=== PATIENT | female | born 1985 | race Caucasian/White ===

== ENCOUNTER → 2020-02-05 13:25 | Outpatient (BNVA) | payer SELFPAY | PROVIDERS: Family Provider Nurse Practitioner; PCP Nurse Practitioner; Visit Provider Nurse Practitioner | DX: R30.0 Dysuria (principal); N30.90 Cystitis, unspecified without hematuria | CPT/HCPCS: 81000 ==

== ENCOUNTER → 2022-12-09 10:57 | Outpatient (BNVA) | payer SELFPAY | PROVIDERS: Family Provider Nurse Practitioner; PCP Nurse Practitioner; Visit Provider Nurse Practitioner Family | DX: S81.851A Open bite, right lower leg, initial encounter (principal); W55.01XA Bitten by cat, initial encounter; Z79.899 Other long term (current) drug therapy | CPT/HCPCS: 87070; 87075; 87077; 87205 ==

== ENCOUNTER 2023-09-19 08:53 | Emergency (ER) | payer SELFPAY ==
--- NOTE | 2023-09-19 08:56 | ED_ITS ---
HPI - Chest Pain 2 General: Chief Complaint: Chest Pain Stated Complaint: chest pain Time Seen by Provider: 09/19/23 08:55 Source: patient Mode of arrival: ambulatory Limitations: no limitations History of Present Illness: Patient is a 37-year-old female with no known past medical history here via EMS for evaluation of chest pain. Patient states chest pain began this morning during a very heated argument with her significant other. She states pain was located to her substernal and left chest with no radiation. She did experience some associated shortness of breath. EMS states upon arrival patient initially rated her pain at a 7/10 and was able to easily walk to the ambulance. In route she reported pain decreased to a 2/10. Shortly later in route she complained that it felt like it was worsening again thus they administered aspirin and nitro. Upon arrival to the emergency department patient is completely pain- free. She does not complain of shortness of breath or difficulty breathing currently. She arrives with perfect vital signs. Patient states she has had similar discomforts with stress and anxiety before. MD complaint: chest pain Onset (ago): hour(s) Timing of current episode: now resolved Prior episodes: Yes Onset: other (during emotional stress) Pain location: substernal and left chest Pain radiation: none Severity: moderate Relieving factors: rest Associated symptoms: Reports dyspnea (during event; subsided now); Deny abdominal pain, fever(s), nausea, palpitations, syncope or vomiting Treatment prior to arrival: aspirin and nitroglycerin Risk Factors: Coronary artery disease risk factors: none Thoracic aortic dissection risk factors: none Related Data: On Oral Contraceptives: No Review of Systems 2 Const: Denies: fever(s), chills, body aches, fatigue or malaise Eyes: Denies: change in vision or blurry vision ENMT: Denies: throat pain, odynophagia, nasal discharge, nasal congestion or sinus pain Card: Reports: chest pain (resolved now); Denies: palpitations, irregular heart rhythm, edema, swelling of feet/ankles, lightheadedness, syncope, pre-syncope, dyspnea on exertion, orthopnea, leg pain with exertion or acrocyanosis Resp: Reports: dyspnea (during event; subsided now); Denies: productive cough, non-productive cough, wheezing, stridor, pain on inspiration, change in phlegm color, hemoptysis or chest congestion GI: Denies: abdominal pain, nausea, vomiting, heartburn or diarrhea : Denies: flank pain or dysuria Musc: Denies: neck pain, back pain, extremity pain, extremity swelling or joint pain Skin/Breast: Denies: rash Neuro: Denies: headache(s), numbness in extremities, weakness in extremities, sensory changes or dizziness PFSH ED 2 PFSH: Social History Smoking and tobacco/nicotine status: never used tobacco/nicotine Second hand smoke exposure: No Alcohol intake: current Alcohol intake frequency: holidays/special occasions only Substance/Drug Use: current Substance/Drug use frequency: few times a week Marital status: Current occupational status: employed Pets and animals: Yes Pets & animals: cat(s) Current gender identity: Female Special ck needs: No Physical Exam 2 Const: COMMON NORMALS: no acute distress, average body habitus, patient oriented x3, no limitations, healthy appearing, alert and well nourished HENMT: COMMON NORMALS: normocephalic and atraumatic HEAD & SCALP: normal to inspection, normocephalic and atraumatic Neck/C-Spine: COMMON NORMALS: full ROM, no lymphadenopathy, supple, no meningeal signs, no JVD and No carotid bruits Chest: COMMONS NORMALS: normal inspection of the chest and normal palpation of entire chest wall Resp: COMMON NORMALS: normal respiratory effort and clear to auscultation bilaterally AUSCULTATION: clear to auscultation bilaterally Cardio: COMMON NORMALS: no JVD, regular rate and regular rhythm RATE: r egular rate RHYTHM: regular rhythm GI: COMMON NORMALS: Normal to inspection, nondistended, normoactive bowel sounds present, Soft to palpation, non-tender, No hepatosplenomegaly present and no masses PALPATION: Yes Soft to palpation and Yes No hepatosplenomegaly present Back/Pelvis: COMMON NORMALS: thoracic and lumbar spine normal to inspection and no thoracic nor lumbar tenderness Extremity: COMMON NORMALS: normal to inspection, no clubbing, cyanosis or edema, no calf tenderness and no pedal edema GENERAL: Yes normal exam except as noted Neuro: [place] COMA SCALE: document GCS findings [place] coma scale eye opening: Spontaneous [place] coma scale verbal response: Orientated [place] coma scale motor response: Obey commands [place] coma scale total score: 15 COMMON NORMALS: patient oriented x3, moves all extremities, no focal motor deficits and no sensory deficits noted SENSORIUM/ORIENTATION: Yes alert MENINGEAL SIGNS: Yes no meningeal signs Skin: COMMON NORMALS: no rashes or lesions noted GENERAL SKIN EXAM: no rashes or lesions noted Course 2 Vital Signs: Vital signs: Vital Signs Temperature 98.3 F 09/19/23 08:57 Pulse Rate 81 09/19/23 08:57 Blood Pressure 114/71 09/19/23 08:57 Pulse Oximetry 100 09/19/23 08:57 Oxygen Delivery Me thod Room Air 09/19/23 08:57 MDM - Chest Pain Medical Decision Making Patient is a 37-year-old female here for an episode of chest pain that occurred during emotional stress as she was having a heated argument with her . She has had similar pains with stress/anxiety before. Upon arrival to the emergency department she is completely pain-free. Her vital signs are perfect. Blood work including troponins are unremarkable. EKG unremarkable. Her CXR showing no acute findings. She has remained asymptomatic throughout her ED stay. Patient will be allowed discharge with return precautions. Lab Data 09/19/23 09:10 09/19/23 09:10 Radiology Impressions Chest X-Ray 09/19/23 09:00 IMPRESSION: No acute findings. Laboratory Results WBC 6.89 10^3/uL (3.29-11.43) 09/19/23 09:10 RBC 4.48 10^6/uL (3.85-5.65) 09/19/23 09:10 Hgb 13.70 g/dL (11.27-16.99) 09/19/23 09:10 Hct 39.5 % (36-47) 09/19/23 09:10 MCV 88.2 fl (85-98) 09/19/23 09:10 MCH 30.6 pg (27-33) 09/19/23 09:10 MCHC 34.7 g/dL (30-55) 09/19/23 09:10 RDW 11.7 % (12.1-15.1) L 09/19/23 09:10 Plt Count 285 10^3/cmm (157-399) 09/19/23 09:10 MPV 9.2 fL (7.4-10.4) 09/19/23 09:10 Neut % (Auto) 70.6 % 09/19/23 09:10 Lymph % (Auto) 22.2 % 09/19/23 09:10 [place] % (Auto) 5.2 % 09/19/23 09:10 Eos % (Auto) 1.2 % 09/19/23 09:10 Baso % (Auto) 0.7 % 09/19/23 09:10 Neut # (Auto) 4.86 10^3/uL (1.8-7.7) 09/19/23 09:10 Lymph # (Auto) 1.5 10^3/uL (0.8-4.8) 09/19/23 09:10 [place] # (Auto) 0.4 10^3/uL (0.2-0.9) 09/19/23 09:10 Eos # (Auto) 0.1 10^3/uL (0.0-0.8) 09/19/23 09:10 Baso # (Auto) 0.1 10^3/uL (0.0-0.1) 09/19/23 09:10 Nucleated RBC % (auto) 0 % 09/19/23 09:10 Nucleated RBCs # 0.0 /100WBC 09/19/23 09:10 Sodium 137 mmol/L (136-145) 09/19/23 09:10 Potassium 3.7 mmol/L (3.5-5.1) 09/19/23 09:10 Chloride 104 mmol/L (98-107) 09/19/23 09:10 Carbon Dioxide 21 mmol/L (22-29) L 09/19/23 09:10 Anion Gap 15.7 (5-19) 09/19/23 09:10 BUN 14 mg/dL (6-20) 09/19/23 09:10 Creatinine 0.8 mg/dL (0.5-0.9) 09/19/23 09:10 GFR Calculation 79.9 mL/min (90-130) L 09/19/23 09:10 Glucose 125 mg/dL (65-115) H 09/19/23 09:10 Calculated Osmolality 286 mOsm/kg (285-295) 09/19/23 09:10 Calcium 9.7 mg/dL (8.5-10.5) 09/19/23 09:10 Total Bilirubin 0.8 mg/dL (0.15-1.2) 09/19/23 09:10 AST 24 U/L (0-32) 09/19/23 09:10 ALT 23 U/L (0-33) 09/19/23 09:10 Alkaline Phosphatase 55 U/L (35-105) 09/19/23 09:10 Troponin T Baseline < 6 ng/L (0-10) 09/19/23 09:10 Total Protein 7.1 g/dL (6.6-8.7) 09/19/23 09:10 Albumin 4.4 g/dL (3.5-5.2) 09/19/23 09:10 Globulin 2.7 g/dL (1.3-4.6) 09/19/23 09:10 HCG, Qual Negative (Negative) 09/19/23 09:10 All radiology interpretation(s) finalized by discharge Discharge Plan Discharge Patient Disposition: Home Clinical Impression: Non-cardiac chest pain Condition: Stable Prescriptions: No Action albuterol sulfate 90 mcg/actuation HFA aerosol inhaler 2 puff INHALATION Q6H PRN mupirocin 2 % ointment 1 applic topical TID Qty: 22 0RF amoxicillin-pot clavulanate 875-125 mg tablet 1 tab PO BID 10 Days Qty: 20 0RF Discharge Orders: Discharge ED (Routine); Ordered 09/19/23 Ordered By: Cassidy John Referrals: Misael Yancey, ROMMEL-C [Primary Care Provider] - Patient Instructions: Noncardiac Chest Pain (ED) Coding Level of Care Code ED Pharmacy Informatics Specialist for Javon Melara
[2023-09-19 08:57] VITALS: BP 114/71; PULSE 81; TEMP 36.8; O2SAT 100; BMI 23.1
--- NOTE | 2023-09-19 09:00 | XRR_ITS ---
PROCEDURE INFORMATION: Exam: XR Chest Exam date and time: 09/19/2023 9:07 AM Age: 37 years old Clinical indication: Pain; Angina pectoris; Additional info: Chest pain TECHNIQUE: Imaging protocol: Radiologic exam of the chest. Views: 1 view. COMPARISON: No relevant prior studies available. FINDINGS: Lungs: Unremarkable. No consolidation. Pleural spaces: Unremarkable. No pleural effusion. No pneumothorax. Heart/Mediastinum: Unremarkable. No cardiomegaly. Bones/joints: Mild biphasic spinal curvature. XR/XR chest 1V portable [id number] IMPRESSION: No acute findings.
--- NOTE | 2023-09-19 09:00 | ECG_ITS ---
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 Measurements Intervals [place] Rate: 73 P: 81 LA: 156 QRS: 79 QRSD: 78 T: 77 QT: 349 QTc: 387 Interpretive Statements SINUS RHYTHM POSSIBLE RIGHT VENTRICULAR CONDUCTION DELAY [RSR (QR) IN V1/V2] MODERATE ST DEPRESSION [0.05+ mV ST DEPRESSION] No previous ECG available for comparison Electronically Signed On 09-19-2023 10:49:37 EVENT SERVICES MANAGER by Mason Reddy M.D. [id number]
[2023-09-19 09:17] LABS: Basophils # 0.1 10^3/uL (0.0-0.1); Basophils % 0.7 %; Eosinophils # 0.1 10^3/uL (0.0-0.8); Eosinophils % 1.2 %; Hematocrit 39.5 % (36-47); Lymphocytes # 1.5 10^3/uL (0.8-4.8); Lymphocytes % 22.2 %; Mean Corpuscular HGB Conc 34.7 g/dL (30-55); Mean Corpuscular Hemoglobin 30.6 pg (27-33); Mean Corpuscular Volume 88.2 fl (85-98); Mean Platelet Volume 9.2 fL (7.4-10.4); Monocytes # 0.4 10^3/uL (0.2-0.9); Monocytes % 5.2 %; Neutrophils # 4.86 10^3/uL (1.8-7.7); Neutrophils % 70.6 %; Nucleated Red Blood Cells % 0 %; Platelet Count 285 10^3/cmm (157-399); Red Blood Count 4.48 10^6/uL (3.85-5.65); Red Cell Distribution Width 11.7 % (12.1-15.1); White Blood Count 6.89 10^3/uL (3.29-11.43)
[2023-09-19 09:27] LABS: HCG, Serum Qual Negative (Negative)
[2023-09-19 09:44] LABS: Alanine Aminotransferase 23 U/L (0-33); Albumin Level 4.4 g/dL (3.5-5.2); Alkaline Phosphatase 55 U/L (35-105); Anion Gap 15.7 (5-19); Aspartate Amino Transferase 24 U/L (0-32); Blood Urea Nitrogen 14 mg/dL (6-20); Calcium 9.7 mg/dL (8.5-10.5); Carbon Dioxide 21 mmol/L (22-29); Chloride 104 mmol/L (98-107); Globulin 2.7 g/dL (1.3-4.6); Glomerular Filtration Rate 79.9 mL/min (90-130); Glucose 125 mg/dL (65-115); Osmolality Calculated 286 mOsm/kg (285-295); Potassium 3.7 mmol/L (3.5-5.1); Sodium 137 mmol/L (136-145); Total Bilirubin 0.8 mg/dL (0.15-1.2); Total Protein 7.1 g/dL (6.6-8.7)
[2023-09-19 09:46] LABS: Troponin(5th) Baseline < 6 ng/L (0-10)
[2023-09-19 10:03] VITALS: BP 108/75; PULSE 82; O2SAT 98
== END 2023-09-19 10:04 | disposition home or self-care (01) ==
PROVIDERS: Emergency Provider Physician Assistant; PCP Nurse Practitioner
DX: R07.89 Other chest pain (principal)
CPT/HCPCS: 71045; 80053; 84484; 84703; 85025; 93005; 99285

== ENCOUNTER 2023-10-16 20:11 | Emergency (ER) | payer SELFPAY ==
[2023-10-16 20:14] VITALS: BP 114/57; PULSE 82; RESP 16; TEMP 36.6; O2SAT 100; BMI 21.4
--- NOTE | 2023-10-16 20:44 | ED_ITS ---
HPI - Abdominal Pain 2 General: Chief Complaint: Abdominal Pain Stated Complaint: vaginal bleeding Time Seen by Provider: 10/16/23 20:40 History of Present Illness: 37-year-old female presents to the emerg ency department with complaints of left back and left flank pain and gross hematuria that started at approximately 1800 this evening. She states she has had a history of urinary tract infections. She states there is a slight chance she may be although she does not know. She states her pain is a constant sharp stabbing pain that is a 8 out of 10 at present. She does endorse associated nausea without vomiting. She states nothing makes the pain better and nothing seems to be making the pain worse. She denies fevers chills or night sweats. Associated Symptoms: Reports dysuria, hematuria and nausea Related Data: Date of Last Menstrual Period: 09/23/23 Review of Systems 2 General: Reports: 10 or more systems reviewed and unremarkable except in HPI and below GI: Reports: nausea : Reports: dysuria, urinary urgency and hematuria Musc: Reports: back pain PFSH ED 2 PFSH: Social History Smoking and tobacco/nicotine status: never used tobacco/nicotine Second hand smoke exposure: No Alcohol intake: current Alcohol intake frequency: holidays/special occasions only Substance/Drug Use: current Substance/Drug use frequency: few times a week Marital status: Current occupational status: employed Pets and animals: Yes Pets & animals: cat(s) Current gender identity: Female Special ck needs: No Female Reproductive History: Date of last menstrual period: 09/23/23 Physical Exam 2 Narrative: EXAM NARRATIVE: Constitutional: the patient appears well nourished and of normal development. Vital signs as documented. Mild acute distress at present. Alert and oriented- to person, place, time and situation. Head, eyes, ears, nose, mouth, throat: Normocephalic, atraumatic. Pupils-equal, round, reactive to light. No scleral icterus. Normal-appearing external ears. Normal appearing nasal turbinates, no drainage. No obvious oral lesions, posterior oropharynx without erythema or exudates. Neck: Supple, trachea is midline, no lymphadenopathy, no jugular venous distension, thyromegaly, or carotid bruits. Carotid upstrokes are brisk bilaterally. Lungs: clear to auscultation to all lung thomas. Symmetrical rise and fall of chest, no obvious signs of increased work of breathing at present. Cardiac: Regular rate and rhythm, positive S1, S2. No murmurs, rubs or gallops that I can appreciate Abdomen: Soft, non-tender to palpation, normal active bowel sounds to all quadrants. No palpable masses, no organomegaly and abdominal bruits. Extremities: 2+ pulses in the upper extremities that are equal bilaterally, 2+ pulses in the lower extremities that are equal bilaterally. Non-edematous. Moves all extremities well, sensation to all extremities are noted. Skin: Warm, dry, intact. Back: Left CVA tenderness to light percussion. Normal alignment, no obvious deformity. Course 2 Vital Signs: Vital signs: Vital Signs Temperature 97.8 F 10/16/23 22:44 Pulse Rate 82 10/16/23 22:44 Respiratory Rate 16 10/16/23 22:44 Blood Pressure 114/57 10/16/23 22:44 Pulse Oximetry 100 10/16/23 22:44 MDM - Abdominal Pain Medical Decision Making Physical exam completed and documented I will obtain IV access and obtain a CBC, CMP urinalysis urine hCG provide her nausea medication as well as IV fluid rehydration and IV pain medication and potentially a CT scan of her abdomen pelvis to rule out renal calculi. Differential diagnosis includes diverticulosis, renal calculi, acute cystitis, pyelonephritis, Medical Records I reviewed the patient's medical records. Lab Data I reviewed the patient's lab results. 10/16/23 20:51 10/16/23 20:51 Labs/Radiology: Radiology Impressions Abdomen/Pelvis CT 10/16/23 21:28 IMPRESSION: 1. 5 x 7 mm proximal left ureteral calculus, see additional details above. 2. Moderate left hydronephrosis 3. Solitary left kidney, with a very small/atretic right kidney. 4. No free air or significant bowel distention. No evidence for bowel obstruction. 5. Borderline/mild biliary tree dilation, see above. No visible gallstones by CT. 6. No diverticulitis. 7. Normal appendix. 8. 32 x 28 x 30 mm right ovarian cyst, see above discussion. 9. Other findings discussed above. Laboratory Results WBC 12.36 10^3/uL (3.29-11.43) H 10/16/23 20:51 RBC 4.59 10^6/uL (3.85-5.65) 10/16/23 20:51 Hgb 14.30 g/dL (11.27-16.99) 10/16/23 20:51 Hct 42.0 % (36-47) 10/16/23 20:51 MCV 91.5 fl (85-98) 10/16/23 20:51 MCH 31.2 pg (27-33) 10/16/23 20:51 MCHC 34.0 g/dL (30-55) 10/16/23 20:51 RDW 12.2 % (12.1-15.1) 10/16/23 20:51 Plt Count 318 10^3/cmm (157-399) 10/16/23 20:51 MPV 9.3 fL (7.4-10.4) 10/16/23 20:51 Neut % (Auto) 86.4 % 10/16/23 20:51 Lymph % (Auto) 9.6 % 10/16/23 20:51 [place] % (Auto) 3.1 % 10/16/23 20:51 Eos % (Auto) 0.2 % 10/16/23 20:51 Baso % (Auto) 0.3 % 10/16/23 20:51 Neut # (Auto) 10.68 10^3/uL (1.8-7.7) H 10/16/23 20:51 Lymph # (Auto) 1.2 10^3/uL (0.8-4.8) 10/16/23 20:51 [place] # (Auto) 0.4 10^3/uL (0.2-0.9) 10/16/23 20:51 Eos # (Auto) 0.0 10^3/uL (0.0-0.8) 10/16/23 20:51 Baso # (Auto) 0.0 10^3/uL (0.0-0.1) 10/16/23 20:51 Nucleated RBC % (auto) 0 % 10/16/23 20:51 Nucleated RBCs # 0.0 /100WBC 10/16/23 20:51 Sodium 139 mmol/L (136-145) 10/16/23 20:51 Potassium 3.9 mmol/L (3.5-5.1) 10/16/23 20:51 Chloride 100 mmol/L (98-107) 10/16/23 20:51 Carbon Dioxide 25 mmol/L (22-29) 10/16/23 20:51 Anion Gap 17.9 (5-19) 10/16/23 20:51 BUN 16 mg/dL (6-20) 10/16/23 20:51 Creatinine 1.0 mg/dL (0.5-0.9) H 10/16/23 20:51 GFR Calculation 61.7 mL/min (90-130) L 10/16/23 20:51 Glucose 149 mg/dL (65-115) H 10/16/23 20:51 Calculated Osmolality 292 mOsm/kg (285-295) 10/16/23 20:51 Calcium 10.0 mg/dL (8.5-10.5) 10/16/23 20:51 Total Bilirubin 0.5 mg/dL (0.15-1.2) 10/16/23 20:51 AST 14 U/L (0-32) 10/16/23 20:51 ALT 14 U/L (0-33) 10/16/23 20:51 Alkaline Phosphatase 62 U/L (35-105) 10/16/23 20:51 Total Protein 7.7 g/dL (6.6-8.7) 10/16/23 20:51 Albumin 4.6 g/dL (3.5-5.2) 10/16/23 20:51 Globulin 3.1 g/dL (1.3-4.6) 10/16/23 20:51 HCG, Qual Negative (Negative) 10/16/23 20:37 Urine Color Red (Yellow) A 10/16/23 20:37 Urine Appearance Cloudy (CLEAR) A 10/16/23 20:37 Urine pH 5 (5-7) 10/16/23 20:37 Ur Specific [place] 1.025 (1.005-1.030) 10/16/23 20:37 Urine Protein Neg (Negative) 10/16/23 20:37 Urine Glucose (UA) Norm (Normal) 10/16/23 20:37 Urine Ketones 1+ (Negative) H 10/16/23 20:37 Urine Blood 3+ (Negative) H 10/16/23 20:37 Urine Nitrate Positive (Negative) H 10/16/23 20:37 Urine Bilirubin 1+ (Negative) H 10/16/23 20:37 Urine Urobilinogen 1 mg/dL (Negative) H 10/16/23 20:37 Ur Leukocyte Esterase 1+ (Negative) H 10/16/23 20:37 Urine RBC 80-100 /hpf (0-2) H 10/16/23 20:37 Urine WBC 25-40 /hpf (0-5) H 10/16/23 20:37 Ur Squamous Epith Cells 15-25 /hpf (0-5) H 10/16/23 20:37 Amorphous Sediment Not Reportable 10/16/23 20:37 Urine Bacteria 2+ /hpf (NONE) H 10/16/23 20:37 Urine Mucus 1+ /hpf 10/16/23 20:37 All radiology interpretation(s) finalized by discharge Discharge Plan Discharge Patient Disposition: Home Clinical Impression: Kidney stone, Acute left flank pain, Hematuria Condition: Stable Prescriptions: New hydrocodone-acetaminophen 5-325 mg tablet 1 tab PO Q8H PRN (Reason: pain) Qty: 14 0RF Flomax 0.4 mg capsule 0.4 mg PO DAILY Qty: 14 0RF No Action albuterol sulfate 90 mcg/actuation HFA aerosol inhaler 2 puff INHALATION Q6H PRN mupirocin 2 % ointment 1 applic topical TID Qty: 22 0RF amoxicillin-pot clavulanate 875-125 mg tablet 1 tab PO BID 10 Days Qty: 20 0RF Discharge Orders: Discharge ED (Routine); Ordered 10/16/23 Ordered By: Jm Pollack Referrals: Misael Yancey, [employer] CONTRACT REPRESENTATIVE-C [Primary Care Provider] - Discharge Diet: Usual diet Discharge Activity: Resume usual activity Patient Instructions: Opioid Safety, Pain Management Activity Restrictions/Additional Instructions: Activity Restrictions/Additional Instructions: Thank you for choosing [facility] for your healthcare needs today. Please realize that you were seen in the Emergency Department and that we are providing you with an emergency medical screening exam and this may not be a complete and all inclusive of all the testing and or medical work-up that you may need to determine your ailment or severity of your illness. It is very important that you follow-up as instructed with your Primary care provider or Specialist for additional evaluation and to discuss your medical treatment plan. You may return to the Emergency Department should you have concerns or if your condition changes or worsens in any way. Call to make a Follow-up appointment: [facility] [address] [place] [address] [facility] [address] [place] [address] Dr.ive Arias [place], [place] [address] Phone--[phone] Stand Alone Forms: Work/School Release Coding Level of Care Code ED Technical Service Rep for Javon Melara
[2023-10-16 21:00] LABS: Basophils % 0.3 %; Eosinophils % 0.2 %; Lymphocytes # 1.2 10^3/uL (0.8-4.8); Lymphocytes % 9.6 %; Mean Corpuscular Hemoglobin 31.2 pg (27-33); Mean Corpuscular Volume 91.5 fl (85-98); Mean Platelet Volume 9.3 fL (7.4-10.4); Monocytes # 0.4 10^3/uL (0.2-0.9); Monocytes % 3.1 %; Neutrophils # 10.68 10^3/uL (1.8-7.7); Neutrophils % 86.4 %; Nucleated Red Blood Cells % 0 %; Platelet Count 318 10^3/cmm (157-399); Red Blood Count 4.59 10^6/uL (3.85-5.65); Red Cell Distribution Width 12.2 % (12.1-15.1); White Blood Count 12.36 10^3/uL (3.29-11.43)
[2023-10-16 21:01] LABS: HCG Qualitative Urine. Negative (Negative)
[2023-10-16 21:18] LABS: Alanine Aminotransferase 14 U/L (0-33); Albumin Level 4.6 g/dL (3.5-5.2); Alkaline Phosphatase 62 U/L (35-105); Anion Gap 17.9 (5-19); Aspartate Amino Transferase 14 U/L (0-32); Blood Urea Nitrogen 16 mg/dL (6-20); Carbon Dioxide 25 mmol/L (22-29); Chloride 100 mmol/L (98-107); Globulin 3.1 g/dL (1.3-4.6); Glomerular Filtration Rate 61.7 mL/min (90-130); Glucose 149 mg/dL (65-115); Osmolality Calculated 292 mOsm/kg (285-295); Potassium 3.9 mmol/L (3.5-5.1); Sodium 139 mmol/L (136-145); Total Bilirubin 0.5 mg/dL (0.15-1.2); Total Protein 7.7 g/dL (6.6-8.7)
[2023-10-16 21:23] LABS: Add Urine Microscopic? YES; Bilirubin Urine 1+ (Negative); Blood Urine 3+ (Negative); Glucose Urine UA Norm (Normal); Ketones Urine 1+ (Negative); Leukocyte Esterase Urine 1+ (Negative); Nitrate Urine Positive (Negative); Protein Urine Neg (Negative); Specific Gravity, Urine 1.025 (1.005-1.030); Urine Appearance Cloudy (CLEAR); Urine Color Red (Yellow); Urobilinogen Urine 1 mg/dL (Negative); pH Urine 5 (5-7)
[2023-10-16 21:24] LABS: RBC Urine 80-100 /hpf (0-2); WBC Urine 25-40 /hpf (0-5)
[2023-10-16 21:25] LABS: Bacteria Urine 2+ /hpf; Mucus Urine 1+ /hpf; Squamous Epithelial Cell Urine 15-25 /hpf (0-5)
[2023-10-16] MEDS: ondansetron 2 mg/ML SDV 2 mL 4 MG IVP (21:28)
--- NOTE | 2023-10-16 21:28 | CTR_ITS ---
PROCEDURE INFORMATION: Exam: CT Abdomen And Pelvis With Contrast Exam date and time: 10/16/2023 9:36 PM Age: 37 years old Clinical indication: Nausea and vomiting; Abdominal pain; Prior surgery; Surgery date: 6+ months; Surgery type: Surgery for ectopic; Patient HX: C/O left flank and lower abd pain with n/v. Hematuria and nitrate positive. TECHNIQUE: Imaging protocol: Computed tomography of the abdomen and pelvis with contrast. Radiation optimization: All CT scans at this facility use at least one of these dose optimization techniques: automated exposure control; mA and/or kV adjustment per patient size (includes targeted exams where dose is matched to clinical indication); or iterative reconstruction. Contrast material: OMNI 350; Contrast volume: 80 ml; Contrast route: INTRAVENOUS (IV); COMPARISON: US transvaginal [id number] 05/03/2017 8:08 AM RADIATION DOSE METRICS: Total DLP (mGy-cm): 377.98 FINDINGS: Lungs: The lung bases are clear. Liver: Unremarkable. Gallbladder and bile ducts: No visible gallstones or other definite gallbladder abnormality by CT. Ultrasound would be more sensitive for detecting gallstones, if clinically needed. Borderline/mild extrahepatic biliary tree dilation, with common duct measuring up to 6-7 mm. Slight intrahepatic biliary prominence. No visible common duct stone by CT. Significance uncertain. Correlation with laboratory/bilirubin levels may be helpful to determine if there is any significant biliary obstruction. Pancreas: Unremarkable. Spleen: Unremarkable. Adrenal glands: Unremarkable. Kidneys and ureters: Three or 4 small left upper pole intrarenal calculi. Moderate left hydronephrosis. There is a 5 x 7 mm proximal left ureteral calculus, at the UPJ. An extremely small/atretic right kidney is seen in the right renal fossa. Stomach and bowel: No significant bowel distention. There are no CT findings to strongly suggest diverticulitis. Appendix: The appendix is visualized and appears normal. Intraperitoneal space: No free intraperitoneal air, or ascites. Vasculature: No evidence for abdominal aortic aneurysm. Lymph nodes: No retroperitoneal adenopathy. Urinary bladder: No visible calculus in the urinary bladder. Reproductive: Prominent 20 mm apparent nabothian cyst again seen in the cervix. On the prior ultrasound exam, this measured 15 mm. 32 x 28 x 30 mm right ovarian cyst. A physiologic cyst is likely, other etiologies not excluded. Ultrasound could further evaluate these ovarian findings if felt clinically indicated, and could also be used for appropriate follow-up, to insure against a persistent or enlarging lesion/neoplasm. No cul-de-sac fluid. Bones/joints: No significant acute finding. Soft tissues: Small umbilical hernia, containing only fat. CT/CT abdomen pelvis w con* [id number] IMPRESSION: 1. 5 x 7 mm proximal left ureteral calculus, see additional details above. 2. Moderate left hydronephrosis 3. Solitary left kidney, with a very small/atretic right kidney. 4. No free air or significant bowel distention. No evidence for bowel obstruction. 5. Borderline/mild biliary tree dilation, see above. No visible gallstones by CT. 6. No diverticulitis. 7. Normal appendix. 8. 32 x 28 x 30 mm right ovarian cyst, see above discussion. 9. Other findings discussed above.
[2023-10-16] MEDS: iohexol 350 mg/mL 500 mL Btl (per mL) IV (21:39)
[2023-10-16] MEDS: ketorolac 30 mg/mL INJ IVP (21:44)
[2023-10-16] MEDS: sodium chloride 0.9% 1,000 ML 999 ML IV (21:49)
[2023-10-16] MEDS: cefTRIAXone 1,000 MG in sodium chloride 0.9% (plus) 50 ML 100 MG IV (22:02)
[2023-10-16 22:44] VITALS: BP 114/57; PULSE 82; RESP 16; TEMP 36.6; O2SAT 100
== END 2023-10-16 22:44 | disposition home or self-care (01) ==
PROVIDERS: Emergency Provider Internal Medicine; PCP Nurse Practitioner
DX: N13.2 Hydronephrosis with renal and ureteral calculous obstruction (principal); R31.9 Hematuria, unspecified
CPT/HCPCS: 74177; 80053; 81001; 81025; 85025; 96374; 96375; 99285; J0696; J1885; J2405; J7030; Q9967